=== PATIENT | male | born 1985 | race Hispanic/Latino ===

== ENCOUNTER 2020-03-16 12:32 | Inpatient (IN) | payer SELFPAY, OTHER ==
[2020-03-16] MEDS: D5 0.45 NS 1,000 ML IV SCH ×4 (06:40→20:00)
[2020-03-16 13:19] LABS: Absolute Lymphocytes (CBC) 0.5 K/uL (0.7-4.9); Basophils % 0.6 % (0-1.3); Lymphocytes % 4.4 % (15.3-44.8); MPV 9.9 fL (7.6-11.3); RBC Red Blood Cell Count 5.89 M/uL (4.33-5.43)
[2020-03-16 13:23] LABS: Protime INR 0.99
[2020-03-16] MEDS ORDERED: NA CHLORIDE 0.9% 2,000 ML ONE (13:31)
[2020-03-16] MEDS ORDERED: MORPHINE 4 MG/ML SYR ONE (13:31)
[2020-03-16] MEDS ORDERED: ONDANSETRON 4 MG/2 ML VIAL ONE ×2 (13:31→14:41)
[2020-03-16 14:04] LABS: ALT/SGPT 72 U/L (12-78); AST/SGOT 43 U/L (15-37); Albumin 3.6 g/dL (3.4-5.0); Alkaline Phosphatase 150 U/L (45-117); Amylase 111 U/L (25-115); BUN Blood Urea Nitrogen 10 mg/dL (7-18); Bilirubin Direct 0.2 mg/dL (0-0.2); Bilirubin Total 0.5 mg/dL (0.2-1.0); CKMB Creatine Kinase MB < 1.0 ng/mL (0.3-3.6); Creatine Phosphokinase 47 U/L (39-308); Lipase 61 U/L (73-393); Potassium 4.7 mmol/L (3.5-5.1); Protein, Total 9.2 g/dL (6.4-8.2); Sodium Level 133 mmol/L (136-145); Troponin (Emerg Dept Use Only) < 0.02 ng/mL (0.0-0.045)
[2020-03-16 14:05] LABS: Bicarbonate 5 mmol/L (21-32); Glucose Level 626 mg/dL (74-106)
[2020-03-16 14:19] LABS: Blood Morphology Comment NOT SEEN (NOT SEEN); Platelet Estimate ADEQ; White Blood Cell Scan OK (OK)
--- NOTE | 2020-03-16 14:20 | RAD REPORT ---
EXAM DESCRIPTION: CT - Abdomen Pelvis W Contrast - 03/16/2020 1:51 pm CLINICAL HISTORY: Abd pain;Nausea / vomiting, epigastric pain, prior appendectomy COMPARISON: No comparisons TECHNIQUE: Biphasic, helical CT imaging of the abdomen and pelvis was performed following 100 ml non -ionic IV contrast. No oral contrast administered. All CT scans are performed using dose optimization technique as appropriate and may include automated exposure control or mA/KV adjustment according to patient size. FINDINGS: No suspicious findings in the lung bases. Diffuse fatty infiltration is present in the liver. No focal liver lesions seen. Areas of spared pare nchyma seen near the portal vasculature and gallbladder fossa. No focal splenic or pancreatic abnorma lity. Gallbladder and biliary tree are also without suspicious finding. Gallstones can be occult on C T imaging. Symmetric renal function is seen with no hydronephrosis or suspicious renal mass. No pyelonephritis o r acute parenchymal process. No bladder abnormalities. No adrenal abnormalities. Fluid-filled stomach is present. No gastric wall thickening. Steward of the antrum are mildly prominent and enhance slightly more than the rest of the gastric steward. No duodenal abnormality seen. No dilated large or small bowel. Appendectomy clips are present. No free air, free fluid or inflammatory stranding. No hernia, mass or bulky lymphadenopathy. No suspicious bony findings. IMPRESSION: No bowel obstruction, free air or surgically emergent finding. Mild prominence of the gastric antrum steward. No obstruction is seen. This could be a mild gastric ant ritis. Diffuse fatty infiltration of the liver.
--- NOTE | 2020-03-16 14:25 | RAD REPORT ---
EXAM DESCRIPTION: RAD - Chest Single View - 03/16/2020 1:58 pm CLINICAL HISTORY: COUGH COMPARISON: Two view chest April 2015 TECHNIQUE: AP portable chest image was obtained 03/16/2020 1:58 pm . FINDINGS: Lung volumes are low. Lung lerma are clear. Right hemidiaphragm elevation noted. No failu re or volume overload. Heart and vasculature are normal. No measurable pleural effusion and no pneumo thorax. No acute bony abnormality seen. No acute aortic findings suspected. IMPRESSION: No acute cardiopulmonary process. No suspicious change from comparison.
[2020-03-16] MEDS ORDERED: GLUCAGON 1 MG/VIAL IM PRN (14:28)
[2020-03-16] MEDS ORDERED: D50W 25 GM/50 ML SYRINGE/VIAL IV PRN (14:28)
[2020-03-16] MEDS ORDERED: D5.45NS W/KCL 20MEQ 0 ML IV ONE (14:41)
--- NOTE | 2020-03-16 14:50 | EDPHYS ---
Physician Documentation [facility] Name: Rashad Pompa Age: 34 yrs Sex: Male : 1985 Arrival Date: 03/16/2020 Time: 12:37 Bed 18 Private MD: ED Physician Aidan Schofield HPI: 03/16 12:59 This 34 yrs old Male presents to ER via Ambulatory with complaints of pm1 Abdominal pain and vomiting. 12:59 The patient presents with abdominal pain in the left upper quadrant. Onset: The pm1 symptoms/episode began/occurred 2.5 week(s) ago. The symptoms do not radiate. Associated signs and symptoms: Pertinent positives: nausea and vomiting, shortness of breath, Pertinent negatives: chest pain, fever, Denies any coughing.. The symptoms are described as achy, constant. Modifying factors: The symptoms are alleviated by nothing, the symptoms are aggravated by drinking, food. Severity of pain: in the emergency department the pain is actually worse. The patient has not experienced similar symptoms in the past. The patient has not recently seen a physician, and does not have an established primary care provider. Patient has been having polydipsia, polyphagia, polyuria for the past 1 week. Patient is having difficulty keeping food and liquids down due to nausea and vomiting. Historical: - Allergies: 12:49 No Known Allergies; ll1 - PSHx: 12:49 "drain a lung" when pt had pneumonia; Appendectomy; ll1 - Immunization history:: Flu vaccine is not up to date. - Social history:: Smoking status: Patient denies any tobacco usage or history of. ROS: 12:59 Constitutional: Negative for fever, chills, and weight loss, Eyes: Negative for injury, pm1 pain, redness, and discharge, ENT: Negative for injury, pain, and discharge, Neck: Negative for injury, pain, and swelling. 12:59 Cardiovascular: Negative for chest pain, palpitations, and edema. 12:59 Back: Negative for injury and pain, : Negative for injury, bleeding, discharge, and swelling, MS/Extremity: Negative for injury and deformity, Skin: Negative for injury, rash, and discoloration, Neuro: Negative for headache, weakness, numbness, tingling, and seizure. 12:59 Respiratory: Positive for shortness of breath, Negative for cough, wheezing. 12:59 Abdomen/GI: Positive for abdominal pain, nausea and vomiting, of the left upper quadrant, Negative for diarrhea, constipation. Exam: 12:59 Constitutional: This is a well developed, well nourished patient who is awake, alert, pm1 and in no acute distress. Head/Face: Normocephalic, atraumatic. 12:59 Back: No spinal tenderness. No costovertebral tenderness. Full range of motion. Skin: Warm, dry with normal turgor. Normal color with no rashes, no lesions, and no evidence of cellulitis. MS/ Extremity: Pulses equal, no cyanosis. Neurovascular intact. Full, normal range of motion. 12:59 Cardiovascular: Rate: tachycardic, Rhythm: regular, Pulses: no pulse deficits are appreciated, Edema: is not appreciated. 12:59 Respiratory: the patient does not display signs of respiratory distress, Respirations: normal, Breath sounds: are clear throughout. 12:59 Abdomen/GI: Inspection: obese Palpation: soft, in all quadrants, mild abdominal tenderness, in the left upper quadrant. 12:59 Neuro: Orientation: is normal, Mentation: is normal, Motor: is normal, moves all fours. Vital Signs: 12:47 BP 133 / 91; Pulse 143; Resp 24; Temp 98.4(O); Pulse Ox 98% ; Weight 140.61 kg; Height ll1 5 ft. 10 in. (177.80 cm); Pain 10/10; 13:34 Pulse 132; Resp 24; Pulse Ox 97% on R/A; ph 14:30 BP 132 / 90; Pulse 131; Resp 24; Pulse Ox 98% on R/A; ph 15:24 BP 126 / 82; Pulse 126; Resp 26; Pulse Ox 97% on R/A; ph 16:30 BP 147 / 86; Pulse 130; Resp 24; Pulse Ox 100% on R/A; ph 17:30 BP 146 / 84; Pulse 121; Resp 24; Pulse Ox 99% on R/A; ph 12:47 Body Mass Index 44.48 (140.61 kg, 177.80 cm) ll1 MDM: 12:48 Patient medically screened. pm1 14:46 Data reviewed: vital signs. Data interpreted: Pulse oximetry: on room air is 97 %. pm1 Interpretation: normal. 14:46 Counseling: I had a detailed discussion with the patient and/or guardian regarding: the pm1 historical points, exam findings, and any diagnostic results supporting the discharge/admit diagnosis, lab results, radiology results, the need for further work-up and treatment in the hospital. 14:46 Physician consultation: Riccardo Calhoun MD was called at 14:46, was contacted at 14:46, pm1 regarding admission, patient's condition, and will see patient. 03/16 12:54 Order name: Amylase, Serum; Complete Time: 14:08 pm1 03/16 12:54 Order name: Basic Metabolic Panel; Complete Time: 14:08 pm1 03/16 12:54 Order name: Blood Culture Adult (2) pm1 03/16 12:54 Order name: CBC with Diff; Complete Time: 14:29 pm1 03/16 12:54 Order name: Ckmb; Complete Time: 14:08 pm1 03/16 12:54 Order name: CPK; Complete Time: 14:08 pm1 03/16 12:54 Order name: Lactate; Complete Time: 14:08 pm1 03/16 12:54 Order name: LFT's; Complete Time: 14:08 pm1 03/16 12:54 Order name: Lipase; Complete Time: 14:08 pm1 03/16 12:54 Order name: Procalcitonin; Complete Time: 14:08 pm1 03/16 12:54 Order name: Protime (+inr); Complete Time: 13:26 pm1 03/16 12:55 Order name: Ptt, Activated; Complete Time: 13:26 pm1 03/16 12:55 Order name: Troponin (emerg Dept Use Only); Complete Time: 14:08 pm1 03/16 12:55 Order name: Urine Microscopic Only pm1 03/16 12:57 Order name: Flu; Complete Time: 15:31 pm1 03/16 12:57 Order name: Strep; Complete Time: 15:14 pm1 03/16 13:18 Order name: Glucose, Ancillary Testing; Complete Time: 13:21 EDMS 03/16 13:25 Order name: Acetone, Serum; Complete Time: 13:49 pm1 03/16 14:18 Order name: CBC Smear Scan; Complete Time: 14:29 EDMS 03/16 15:13 Order name: Throat Culture EDMS 03/16 15:28 Order name: ABG Arterial Blood Gas EDMS 03/16 15:28 Order name: ABG Arterial Blood Gas EDMS 03/16 15:28 Order name: Acetone Level EDMS 03/16 15:28 Order name: Acetone Level; Complete Time: 16:57 EDMS 03/16 15:28 Order name: Acetone Level EDMS 03/16 15:28 Order name: Basic Metabolic Panel EDMS 03/16 15:28 Order name: Basic Metabolic Panel; Complete Time: 16:57 EDMS 03/16 15:28 Order name: Basic Metabolic Panel EDMS 03/16 15:28 Order name: Calcium Level EDMS 03/16 15:28 Order name: Calcium Level EDMS 03/16 15:28 Order name: Calcium Level EDMS 03/16 15:28 Order name: Calcium Level EDMS 03/16 15:28 Order name: CBC with Automated Diff EDMS 03/16 15:28 Order name: CBC with Automated Diff EDMS 03/16 15:28 Order name: CBC with Automated Diff EDMS 03/16 15:28 Order name: CBC with Automated Diff EDMS 03/16 15:28 Order name: Lipid Profile EDMS 03/16 15:28 Order name: Lipid Profile EDMS 03/16 15:28 Order name: Magnesium EDMS 03/16 15:28 Order name: Magnesium EDMS 03/16 15:28 Order name: Magnesium EDMS 03/16 15:28 Order name: Magnesium EDMS 03/16 15:28 Order name: Phosphorus EDMS 03/16 15:28 Order name: Phosphorus EDMS 03/16 15:28 Order name: Phosphorus EDMS 03/16 15:28 Order name: Phosphorus EDMS 03/16 16:03 Order name: SARS-COV-2 RT PCR; Complete Time: 16:06 EDMS 03/16 16:23 Order name: Glucose ph 03/16 16:33 Order name: Glucose, Ancillary Testing; Complete Time: 16:39 EDMS 03/16 16:53 Order name: Glucose Level; Complete Time: 16:57 EDMS 03/16 16:54 Order name: Lactate Sepsis 2 HR Follow-up; Complete Time: 16:57 EDMS 03/16 17:31 Order name: ABG Arterial Blood Gas; Complete Time: 17:32 EDMS 03/16 17:45 Order name: Glucose ph 03/16 17:56 Order name: Glucose, Ancillary Testing EDID 03/16 18:50 Order name: Glucose, Ancillary Testing EDID 03/16 19:09 Order name: Glucose Level EDID 03/16 19:45 Order name: Glucose, Ancillary Testing EDMS 03/16 20:34 Order name: Glucose, Ancillary Testing EDMS 03/16 21:48 Order name: Glucose, Ancillary Testing EDID 03/16 22:52 Order name: Glucose, Ancillary Testing EDMS 03/16 23:51 Order name: Glucose, Ancillary Testing EDID 03/16 12:55 Order name: Chest Single View XRAY; Complete Time: 14:29 pm03/16 12:55 Order name: Accucheck; Complete Time: 13:31 pm1 03/16 12:55 Order name: Cardiac monitoring; Complete Time: 13:31 pm03/16 12:55 Order name: EKG - Nurse/Tech; Complete Time: 15:23 pm1 03/16 12:55 Order name: IV Saline Lock - Large Bore; Complete Time: 13:14 pm03/16 12:55 Order name: Labs collected and sent; Complete Time: 13:14 pm03/16 12:55 Order name: O2 Per Protocol; Complete Time: 13:14 pm03/16 12:55 Order name: O2 Sat Monitoring; Complete Time: 13:14 pm03/16 12:55 Order name: Urine Dipstick-Ancillary (obtain specimen); Complete Time: 23:18 pm1 03/16 12:55 Order name: CT Abd/Pelvis - IV Contrast Only; Complete Time: 14:29 pm03/16 12:57 Order name: Droplet/Contact Precautions; Complete Time: 13:13 pm03/16 14:17 Order name: NPO; Complete Time: 14:22 pm03/16 15:28 Order name: CONS Pharmacy Consult EDID 03/16 15:28 Order name: NPO EDID 03/17 00:25 Order name: Acetone Level EDID 03/17 00:36 Order name: Basic Metabolic Panel EDID 03/17 00:52 Order name: Glucose, Ancillary Testing EDID 03/17 01:53 Order name: Glucose, Ancillary Testing EDID 03/17 02:49 Order name: Glucose, Ancillary Testing [facility] 03/17 03:48 Order name: Glucose, Ancillary Testing EDID 03/17 04:49 Order name: Acetone Level EDMS 03/17 04:49 Order name: Glucose, Ancillary Testing EDMS 03/17 04:58 Order name: NT PRO-BNP EDMS 03/17 05:02 Order name: Basic Metabolic Panel EDMS 03/17 05:02 Order name: Hemoglobin A1c EDMS 03/17 05:28 Order name: Manual Differential EDMS 03/17 05:49 Order name: Glucose, Ancillary Testing EDMS 03/17 06:43 Order name: Glucose, Ancillary Testing EDMS 03/17 07:36 Order name: Glucose, Ancillary Testing EDMS Administered Medications: 13:26 Drug: Zofran (Ondansetron) 4 mg Route: IVP; Site: right antecubital; ph 19:29 Follow up: Response: No adverse reaction ph 13:28 Drug: morphine 4 mg Route: IVP; Site: right antecubital; ph 14:30 Follow up: Response: No adverse reaction; Pain is decreased ph 13:30 Drug: NS 0.9% (30 ml/kg) 30 ml/kg Route: IV; Rate: bolus; Site: right antecubital; ph 16:00 Follow up: Response: No adverse reaction; IV Status: Completed infusion; IV Intake: ph 2000ml 14:59 Drug: Zofran (Ondansetron) 4 mg Route: IVP; Site: right antecubital; ph 16:00 Follow up: Response: No adverse reaction; Nausea unchanged ph 15:15 Drug: Insulin Drip - (Insulin Regular Human 100 units, NS 0.9% 100 ml) {Co-Signature: ph zb (Cristina Villatoro RN).} Route: IV; Rate: calculated rate; Site: right hand; 19:29 Follow up: Response: No adverse reaction; Blood sugar is lowered; IV Status: Infusion ph continued upon admission 16:21 Drug: D5W with KCL 20 mEq/L 1000 ml Route: IV; Rate: 200 ml/hr; Site: right hand; ph 19:28 Follow up: Response: No adverse reaction; IV Status: Infusion continued upon admission ph 16:40 Drug: Phenergan 12.5 mg Route: IVP; Site: right antecubital; ph 17:00 Follow up: Response: No adverse reaction; Nausea is decreased; Vomiting decreased ph 17:05 Drug: Insulin Regular Human 10 units {Co-Signature: zb (Cristina Villatoro RN).} Route: ph IVP; Site: right antecubital; 18:00 Follow up: Response: No adverse reaction; Blood sugar is lowered ph 17:07 Drug: Sodium Bicarbonate 1 amp Route: IVP; Site: right antecubital; ph 19:33 Follow up: Response: No adverse reaction ph Disposition: 03/16/20 14:49 Hospitalization ordered by Riccardo Calhoun for Inpatient Admission. Preliminary diagnosis is Diabetes mellitus due to underlying condition with ketoacidosis. - Bed requested for [facility] ER HOLD. - Status is Inpatient Admission. bp - Condition is Fair. - Problem is new. - Symptoms have improved. Addendum: 03/20/2020 19:30 Co-signature as Attending Physician, Aidan Schofield MD. r n Signatures: Dispatcher [employer] EDMS Aidan Schofield MD MD rn Hall, Patricia, RN RN ph Harinder Brown, MASH FILTER OPERATOR MASH FILTER OPERATOR pm1 Russell Wheeler RN RN Catalina Iglesias Lynsay, RN RN [facility] Cristina soria Corrections: (The following items were deleted from the chart) 03/16 15:03 12:58 CORONAVIRUS+MR.LAB.BRZ ordered. EDID EDMS 17:42 14:49 Hospitalization Ordered by Riccardo Calhoun MD for Inpatient Admission. Preliminary eb diagnosis is Diabetes mellitus due to underlying condition with ketoacidosis. Bed requested for Intensive Care Unit. Status is Inpatient Admission. Condition is Fair. Problem is new. Symptoms have improved. pm1 03/17 07:54 03/16 17:42 03/16/2020 14:49 Hospitalization Ordered by Riccardo Calhoun MD for Inpatient bp Admission. Preliminary diagnosis is Diabetes mellitus due to underlying condition with ketoacidosis. Bed requested for [facility] ER HOLD. Status is Inpatient Admission. Condition is Fair. Problem is new. Symptoms have improved. eb
--- NOTE | 2020-03-16 14:50 | ER ---
Nurse's Notes [facility] Name: Rashad Pompa Age: 34 yrs Sex: Male : 1985 Arrival Date: 03/16/2020 Time: 12:37 Bed 18 Private MD: Diagnosis: Diabetes mellitus due to underlying condition with ketoacidosis Presentation: 03/16 12:47 Chief complaint: Patient states: N/V with abdominal pain for 2 weeks. SOB and cough for ll1 3-4 days. Coronavirus screen: Client denies travel out of the [place] in the last 14 days. congestion, cough unrelated to allergies, difficulty breathing, fatigue, nausea, vomiting. Client presents with at least one sign or symptom that may indicate coronavirus-19. Standard/surgical mask placed on the client. Ebola Screen: Patient denies travel to an Ebola-affected area in the 21 days before illness onset. Initial Sepsis Screen: Does the patient meet any 2 criteria? RR > 20 per min. HR > 90 bpm. Yes Does the patient have a suspected source of infection? Yes: Productive cough/pneumonia Acute abdominal pain. Risk Assessment: Do you want to hurt yourself or someone else? Patient reports no desire to harm self or others. Onset of symptoms was March 02, 2020. 12:47 Method Of Arrival: Ambulatory ll1 12:47 Acuity: LEONA 2 ll1 Historical: - Allergies: 12:49 No Known Allergies; ll1 - PSHx: 12:49 "drain a lung" when pt had pneumonia; Appendectomy; ll1 - Immunization history:: Flu vaccine is not up to date. - Social history:: Smoking status: Patient denies any tobacco usage or history of. Screenin:13 Abuse screen: Denies threats or abuse. Denies injuries from another. Nutritional ph screening: No deficits noted. Tuberculosis screening: No symptoms or risk factors identified. Fall Risk None identified. Assessment: 13:34 General: Appears in no apparent distress. uncomfortable, obese, well groomed, Behavior ph is calm, cooperative, appropriate for age, Reports feeling ill for approx 1 week. Denies fever. Pain: Complains of pain in left upper quadrant Pain does not radiate. Neuro: Level of Consciousness is awake, obeys commands, lethargic, Oriented to person, place, time, situation. Cardiovascular: Reports fatigue, nausea, vomiting, Denies chest pain, Capillary refill < 3 seconds in bilateral fingers Patient's skin is warm and dry. Respiratory: Airway is patent Respiratory effort is even, labored, Respiratory pattern is tachypnea. GI: Abdomen is obese, Reports upper abdominal pain, nausea, vomiting, Patient currently denies diarrhea. : No signs and/or symptoms were reported regarding the genitourinary system. Derm: Skin is intact, Skin is pink, warm \\T\\ dry. Musculoskeletal: Circulation, motion, and sensation intact. Range of motion: intact in all extremities. 14:30 Reassessment: Patient appears in no apparent distress at this time. No changes from ph previously documented assessment. Patient and/or family updated on plan of care and expected duration. Pain level reassessed. 15:30 Reassessment: Patient appears in no apparent distress at this time. No changes from ph previously documented assessment. Patient and/or family updated on plan of care and expected duration. Pain level reassessed. at bedside. 16:29 Reassessment: Dr Calhoun at bedside to speak w/ pt, insulin drip increased to 8 units/hr. ph 17:43 Reassessment: Patient appears in no apparent distress at this time. Patient and/or ph family updated on plan of care and expected duration. Pain level reassessed. glucose remains >500, verbal order from Dr Calhoun to increase drip to 12 units. 20:30 Reassessment: [id number] hipolito Jasso. rr5 03/17 07:00 Reassessment: RECD REPORT FROM GITA LAGOS. 34YO HM ON ER HOLD FOR ICU ADMIT 2/2 DKA. bp 07:54 Reassessment: REPORT TO EDUARDO LAGOS FOR ER ICU. bp Vital Signs: 03/16 12:47 BP 133 / 91; Pulse 143; Resp 24; Temp 98.4(O); Pulse Ox 98% ; Weight 140.61 kg; Height ll1 5 ft. 10 in. (177.80 cm); Pain 03/01; 13:34 Pulse 132; Resp 24; Pulse Ox 97% on R/A; ph 14:30 BP 132 / 90; Pulse 131; Resp 24; Pulse Ox 98% on R/A; ph 15:24 BP 126 / 82; Pulse 126; Resp 26; Pulse Ox 97% on R/A; ph 16:30 BP 147 / 86; Pulse 130; Resp 24; Pulse Ox 100% on R/A; ph 17:30 BP 146 / 84; Pulse 121; Resp 24; Pulse Ox 99% on R/A; ph 12:47 Body Mass Index 44.48 (140.61 kg, 177.80 cm) ll1 ED Course: 12:37 Patient arrived in ED. mr 12:39 Harinder Brown, SIGIFREDO is PHCP. pm1 12:39 Aidan Schofield MD is Attending Physician. pm1 12:41 Karolina Dalton RN is Primary Nurse. ph 12:48 Triage completed. ll1 12:48 Arm band placed on Patient placed in an exam room, on a stretcher. ll1 12:55 Inserted saline lock: 20 gauge in right antecubital area, using aseptic technique. jp3 Blood collected. 12:55 First set of blood cultures drawn by me. Patient maintains SpO2 saturation greater than jp3 95% on room air. 13:00 Initial lab(s) drawn, by me, sent to lab. jp3 13:10 Second set of blood cultures drawn by lab staff. jp3 13:13 Patient has correct armband on for positive identification. Bed in low position. Call ph light in reach. Side rails up X 1. direct support professional on. Pulse ox on. NIBP on. Door closed. Noise minimized. 13:13 Verbal reassurance given. Notified Nurse Practitioner and/or Physician Director Of In Service Education of POC jp3 Glucose read HI(>500) Notified primary nurse of POC Glucose read HI (>500). 13:52 CT Abd/Pelvis - IV Contrast Only In Process Unspecified. EDMS 13:57 Chest Single View XRAY In Process Unspecified. EDMS 14:02 Notified Nurse Practitioner and/or Physician Director Of In Service Education of a critical lab result(s), hb lactate 2.3, CO2 5, glucose 626. 14:49 Riccardo Calhoun MD is Hospitalizing Provider. pm1 15:00 Inserted saline lock: 22 gauge in right hand, using aseptic technique. ph 16:56 Notified ED physician of a critical lab result(s). GLUCOSE [id number] Notified Nurse hb Practitioner and/or Physician Director Of In Service Education of. 17:45 No provider procedures requiring assistance completed. Patient admitted, IV remains in ph place. 20:59 Notified primary nurse of Glucose and CO2 results, primary nurse to notify hopitalist. sg 21:03 Primary Nurse role handed off by Karolina Dalton RN mw2 21:03 Jerrod Pfeiffer, DEMOND is Primary Nurse. rr5 03/17 07:01 Primary Nurse role handed off by Jerrod Pfeiffer RN bp 07:01 Russell Wheeler, DEMOND is Primary Nurse. bp Administered Medications: 03/16 13:26 Drug: Zofran (Ondansetron) 4 mg Route: IVP; Site: right antecubital; ph 19:29 Follow up: Response: No adverse reaction ph 13:28 Drug: morphine 4 mg Route: IVP; Site: right antecubital; ph 14:30 Follow up: Response: No adverse reaction; Pain is decreased ph 13:30 Drug: NS 0.9% (30 ml/kg) 30 ml/kg Route: IV; Rate: bolus; Site: right antecubital; ph 16:00 Follow up: Response: No adverse reaction; IV Status: Completed infusion; IV Intake: ph 2000ml 14:59 Drug: Zofran (Ondansetron) 4 mg Route: IVP; Site: right antecubital; ph 16:00 Follow up: Response: No adverse reaction; Nausea unchanged ph 15:15 Drug: Insulin Drip - (Insulin Regular Human 100 units, NS 0.9% 100 ml) {Co-Signature: ph zb (Cristina Villatoro RN).} Route: IV; Rate: calculated rate; Site: right hand; 19:29 Follow up: Response: No adverse reaction; Blood sugar is lowered; IV Status: Infusion ph continued upon admission 16:21 Drug: D5W with KCL 20 mEq/L 1000 ml Route: IV; Rate: 200 ml/hr; Site: right hand; ph 19:28 Follow up: Response: No adverse reaction; IV Status: Infusion continued upon admission ph 16:40 Drug: Phenergan 12.5 mg Route: IVP; Site: right antecubital; ph 17:00 Follow up: Response: No adverse reaction; Nausea is decreased; Vomiting decreased ph 17:05 Drug: Insulin Regular Human 10 units {Co-Signature: zb (Cristina Villatoro RN).} Route: ph IVP; Site: right antecubital; 18:00 Follow up: Response: No adverse reaction; Blood sugar is lowered ph 17:07 Drug: Sodium Bicarbonate 1 amp Route: IVP; Site: right antecubital; ph 19:33 Follow up: Response: No adverse reaction ph Intake: 16:00 IV: 2000ml; Total: 2000ml. ph Output: 15:37 Urine: 800ml (Voided); Total: 800ml. ph Outcome: 14:49 Decision to Hospitalize by Provider. pm1 17:45 Admitted to ER Hold. Please see [facility] for further documentation. ph 17:45 critical 17:45 Instructed on the need for admit. 03/17 07:54 Patient left the ED. bp Signatures: Dispatcher [employer] EDMS Wesley Bowden, RN RN sg Natalee Calzada mr Karolina Dalton RN DEMOND ph Harinder Brown, ROUGH RICE GRADER ROUGH RICE GRADER pm1 Carmen Wilson RN Russell Albarado RN RN bp Ned Villaseñor mw2 Matthew Villareal jp3 Jerrod Pfeiffer RN RN rr5 Charla Foreman RN RN ll1 Cristina Villatoro RN zb Corrections: (The following items were deleted from the chart) 03/16 19:29 16:30 Response: No adverse reaction; IV Status: Completed infusion; IV Intake: 2000ml phph 21:21 21:20 Notified primary nurse of Glucose and CO2 results, primary nurse to notify sg hopitalist bety
[2020-03-16] MEDS ORDERED: ONDANSETRON 4 MG/2 ML VIAL IV PRN (15:18)
[2020-03-16] MEDS ORDERED: D5W 1,000 ML with POTASSIUM CL 20 MEQ IV ONE ×2 (16:00)
[2020-03-16] MEDS ORDERED: PROMETHAZINE INJ 25 MG/ML AMP ONE (16:45)
[2020-03-16 16:51] LABS: BUN Blood Urea Nitrogen 12 mg/dL (7-18); Sodium Level 136 mmol/L (136-145)
[2020-03-16 16:53] LABS: Bicarbonate 7 mmol/L (21-32); Glucose Level 549 mg/dL (74-106)
[2020-03-16] MEDS ORDERED: INSULIN -REGULAR HUMAN 50 UNIT/0.5 ML ML ONE (17:12)
[2020-03-16] MEDS ORDERED: SODIUM BICARB 50 MEQ/50ML VIAL ONE (17:12)
[2020-03-16 17:30] LABS: Arterial Blood Carboxyhemoglob 1.8 % (0-1.5); Blood Gas Oxyhemoglobin 94.9 % (94-97); Blood O2 Saturation 97.6 % (92-98.5)
[2020-03-16] MEDS: NACHLORIDE 0.45% 1,000 ML with POTASSIUM CL 20 MEQ IV SCH ×4 (17:45→20:03)
--- NOTE | 2020-03-16 18:17 | P.HP ---
Certification for Inpatient Patient admitted to: Inpatient With expected LOS: >2 Midnights Patient will require the following post-hospital care: None Practitioner: I am a practitioner with admitting privileges, knowledge of patient current condition, hospital course, and medical plan of care. Services: Services provided to patient in accordance with Admission requirements found in Title 42 Section 412.3 of the Code of Federal Regulations Patient History Date of Service: 03/16/20 Reason for admission: DKA History of Present Illness: Patient is a 34-year-old gentleman came to the hospital with shortness of breath. Patient was weak and he had been having polydipsia and polyphagia. He had also been having polyuria. He had lost about 20 lb over the last week. His symptoms have not been improving so he was brought into the emergency room. Initially they thought he was septic. However, further workup revealed that patient was in diabetic ketoacidosis. Patient was started on the insulin drip and also given D5 water. I was consulted to see the patient. We switch patient's fluid over to normal saline and had a VBG performed. Patient was severely acidotic. They gave him an amp of bicarb in the emergency room. We increased his insulin rate. Radial to get his blood sugars slowly to come down from 500 into the 300 range. Patient will be admitted to the hospital for further treatment. Patient will need inpatient hospitalization. He has never been told he is a diabetic. This is a new diagnosis for him and he will need to be on long-acting insulin going forward. Allergies No Known Drug Allergies Allergy (Unverified 02/06/15 13:38) Unknown - Past Medical/Surgical History Has patient received pneumonia vaccine in the past: No Diabetic: No Past Medical History: Patient denies medical history Past Surgical History: Patient denies surgical history - Family History Father Family History: Reviewed- Non-Contributory - Social History Smoking Status: Unknown if ever smoked Alcohol use: No CD- Drugs: No Review of Systems 10-point ROS is otherwise unremarkable Physical Examination - Vital Signs Temperature: 98 F Blood Pressure: 99/60 Pulse: 120 Respirations: 30 Pulse Ox (%): 98 - Physical Exam General: Alert, In no apparent distress, Oriented x3, Moderate distress HEENT: Atraumatic, Normocephalic Neck: Supple, 2+ carotid pulse no bruit, JVD not distended, No Thyromegaly Respiratory: Diminished, Crackles/rales Cardiovascular: Regular rate/rhythm, Normal S1 S2, No murmurs Gastrointestinal: Normal bowel sounds, Soft and benign, Non-distended, No rebound, No guarding, Tenderness Musculoskeletal: No clubbing, No swelling Integumentary: No rashes Neurological: Normal gait, Normal speech, Normal tone, Sensation intact, Cranial nerves 3-12 intact, Abnormal strength - Studies Laboratory Data (last 24 hrs) 03/16/20 13:00: PT 11.7, INR 0.99, APTT 37.8 H 03/16/20 13:00: WBC 11.9 H, Hgb 17.6, Hct 54.0 H, Plt Count 288 03/16/20 13:00: Sodium 133 L, Potassium 4.7, BUN 10, Creatinine 1.44 H, Glucose 626 H*, Total Bilirubin 0.5, AST 43 H, ALT 72, Alkaline Phosphatase 150 H, Amylase 111, Lipase 61 L Microbiology Data (last 24 hrs): 03/16/20 14:50 Nasopharnyx Influenza Type A Antigen Screen - Final 03/16/20 14:50 Nasopharnyx Influenza Type B Antigen Screen - Final 03/16/20 14:50 Throat Group A Streptococcus Rapid Screen - Final Assessment & Plan - Problems (Diagnosis) (1) Diabetic keto-acidosis Current Visit: Yes Status: Acute Qualifiers: Diabetes mellitus type: type 1 Diabetes mellitus complication detail: without coma Qualified Code(s): E10.10 - Type 1 diabetes mellitus with ketoacidosis without coma (2) Morbid obesity due to excess calories Current Visit: Yes Status: Acute (3) Respiratory distress Current Visit: Yes Status: Acute - Plan Plan: 1. Aggressive IV hydration 2. Insulin drip 3. Monitor electrolytes closely 4. Replace electrolytes as needed 5. Changed IV fluids once blood sugars are less than 250 6. Once anion gap is closed we will see if patient can tolerate a diet and if he does then we can give him his long-acting insulin and stop the insulin drip an hour later. Hydration will depend on patient's volume status 7. Patient is new onset diabetic. Will need to do diabetic education and teaching had a use insulin and check his blood sugars. Patient is tachypneic and hopefully as his acidosis corrects his respiratory status should improve as well. We will monitor him closely in the ICU 8. GI and DVT prophylaxis Discharge Plan: Home Plan to discharge in: Greater than 2 days - Advance Directives Does patient have a Living Will: No Does patient have a Durable POA for Healthcare: No - Code Status/Comfort Care Code Status Assessed: Yes Code Status: Full Code Critical Care: Yes Time Spent Managing PTS Care (In Minutes): 70
[2020-03-16 19:05] LABS: Urine Amorphous Sediment TRACE /HPF (NONE SEEN); Urine Bacteria <20 /HPF (NONE SEEN); Urine Culture Reflex Order REFLEXED; Urine Mucus LIGHT /HPF (NONE SEEN); Urine RBC <5 /HPF (NONE SEEN); Urine Yeast PRESENT (NONE SEEN)
[2020-03-16 20:53] LABS: BUN Blood Urea Nitrogen 10 mg/dL (7-18); Potassium 4.2 mmol/L (3.5-5.1); Sodium Level 139 mmol/L (136-145)
[2020-03-16 20:57] LABS: Bicarbonate 7 mmol/L (21-32); Glucose Level 428 mg/dL (74-106)
[2020-03-16 21:53] VITALS: BMI 44.2
[2020-03-16] MEDS ORDERED: NA CHLORIDE 0.9% 1,000 ML ONE (22:50)
[2020-03-16] MEDS: NA CHLORIDE 0.9% 1,000 ML IV SCH (23:00)
[2020-03-17] MEDS: NACHLORIDE 0.45% 1,000 ML with POTASSIUM CL 20 MEQ IV SCH ×12 (00:06→23:11)
[2020-03-17 00:35] LABS: BUN Blood Urea Nitrogen 10 mg/dL (7-18); Glucose Level 332 mg/dL (74-106); Sodium Level 139 mmol/L (136-145)
[2020-03-17 00:36] LABS: Bicarbonate 8 mmol/L (21-32)
[2020-03-17] MEDS ORDERED: ONDANSETRON 4 MG/2 ML VIAL ONE (01:37)
[2020-03-17] MEDS ORDERED: NA CHLORIDE 0.9% 100 ML IV ONE (02:12)
[2020-03-17] MEDS ORDERED: INSULIN -REGULAR HUMAN 50 UNIT/0.5 ML ML ONE (02:12)
[2020-03-17 04:48] LABS: Basophils % 0.5 % (0-1.3); Hematocrit 49.6 % (39.6-49.0); Lymphocytes % 8.4 % (15.3-44.8); MPV 9.4 fL (7.6-11.3); RBC Red Blood Cell Count 5.56 M/uL (4.33-5.43)
[2020-03-17] MEDS: D5 0.45 NS 1,000 ML IV SCH ×3 (04:50→17:22)
[2020-03-17 04:56] LABS: Magnesium 2.1 mg/dL (1.8-2.4); Phosphorus 1.1 mg/dL (2.5-4.9)
[2020-03-17] MEDS ORDERED: D5 0.45 NS 1,000 ML IV ONE ×3 (04:56→22:21)
[2020-03-17 04:57] LABS: BUN Blood Urea Nitrogen 9 mg/dL (7-18); Glucose Level 264 mg/dL (74-106); Potassium 3.9 mmol/L (3.5-5.1); Sodium Level 141 mmol/L (136-145)
[2020-03-17 05:02] LABS: Bicarbonate 12 mmol/L (21-32)
[2020-03-17 05:27] LABS: Blood Morphology Comment NOT SEEN (NOT SEEN); Platelet Estimate ADEQ
[2020-03-17 05:27] LABS: Arterial Blood Carboxyhemoglob 1.9 % (0-1.5); Blood Gas Oxyhemoglobin 95.5 % (94-97); Blood O2 Saturation 98.2 % (92-98.5)
[2020-03-17] MEDS: NA CHLORIDE 0.9% 1,000 ML IV SCH (05:40)
[2020-03-17] MEDS ORDERED: POTASSIUM PHOS IN 0.9 % NACL 15 MMOL/250 ML BAG IV ONE ×3 (06:24→18:00)
[2020-03-17 09:03] LABS: BUN Blood Urea Nitrogen 8 mg/dL (7-18); Glucose Level 317 mg/dL (74-106); Potassium 3.8 mmol/L (3.5-5.1); Sodium Level 139 mmol/L (136-145)
[2020-03-17 09:05] LABS: Bicarbonate 13 mmol/L (21-32)
[2020-03-17] MEDS ORDERED: ENOXAPARIN 40 MG/0.4 ML SQ ONE (09:08)
[2020-03-17] MEDS: ENOXAPARIN 40 MG/0.4 ML SQ SCH (09:48)
[2020-03-17] MEDS ORDERED: SODIUM CHLORIDE 0.9% 10ML INJ IV PRN (12:09)
--- NOTE | 2020-03-17 12:09 | P.PN ---
Subjective Date of Service: 03/17/20 Primary Care Provider: none Chief Complaint: DKA Subjective: Other (Patient reports slight improvement but still feeling tired) Physical Examination - Vital Signs Temperature: 98 F Blood Pressure: 150/100 Pulse: 115 Respirations: 24 Pulse Ox (%): 97 - Physical Exam General: Alert, In no apparent distress, Oriented x3, Cooperative HEENT: Atraumatic, Other (dry mucous membranes) Neck: Supple Respiratory: Clear to auscultation bilaterally, Normal air movement Cardiovascular: Abnormal pulses Gastrointestinal: Normal bowel sounds, No tenderness, No masses, No rebound, No guarding Neurological: Normal speech, Normal strength at 5/5 x4 extr, Normal tone, Normal affect - Studies Laboratory Data (last 24 hrs) 03/16/20 13:00: PT 11.7, INR 0.99, APTT 37.8 H 03/16/20 13:00: WBC 11.9 H, Hgb 17.6, Hct 54.0 H, Plt Count 288 03/16/20 13:00: Sodium 133 L, Potassium 4.7, BUN 10, Creatinine 1.44 H, Glucose 626 H*, Total Bilirubin 0.5, AST 43 H, ALT 72, Alkaline Phosphatase 150 H, Amylase 111, Lipase 61 L Microbiology Data (last 24 hrs): 03/16/20 14:50 Nasopharnyx Influenza Type A Antigen Screen - Final 03/16/20 14:50 Nasopharnyx Influenza Type B Antigen Screen - Final 03/16/20 14:50 Throat Group A Streptococcus Rapid Screen - Final Medications List Reviewed: Yes Assessment & Plan Discharge Plan: Home Plan to discharge in: 72 Hours Physician Review Additional Text: Impression: Diabetic ketoacidosis with new diagnosis of type 2 diabetes uncontrolled with hyperglycemia Hypertension uncontrolled GERD Fatty liver Obesity BMI 44 Plan: Diabetic ketoacidosis with new diagnosis of type 2 diabetes uncontrolled with hyperglycemia: Continue DKA protocol. Continue monitor electrolytes. Continue IV fluids. Patient on insulin drip. Continue maintain blood sugar around 200- 250. Will monitor closely. Once gap has closed and bicarb has improved then will transition to insulin subcu. A1c greater than 13. Patient will require insulin at discharge. Will teach on diabetes once better controlled. COVID 19 infection and pneumonia have been ruled out. Suspect underlying GERD. Will start medication. Continue DVT prophylaxis. Anticipate improvement over the n ext 48-72 hr. Hypertension uncontrolled: Will start metoprolol. Will continue to adjust medication. GERD: Will start medication. Fatty liver: Will address education Obesity BMI 44: Will address lifestyle modification education. Time Spent Managing Pts Care (In Minutes): 55
[2020-03-17 12:51] LABS: BUN Blood Urea Nitrogen 7 mg/dL (7-18); Glucose Level 265 mg/dL (74-106); Potassium 3.6 mmol/L (3.5-5.1); Sodium Level 141 mmol/L (136-145)
[2020-03-17 12:54] LABS: Bicarbonate 13 mmol/L (21-32)
[2020-03-17] MEDS: METOPROLOL TAR 25 MG TAB PO SCH ×2 (13:15→20:57)
[2020-03-17] MEDS: PANTOPRAZOLE 40 MG INJ IVP SCH (13:15)
[2020-03-17] MEDS ORDERED: METOPROLOL TAR 25 MG TAB ONE ×2 (13:22→20:31)
[2020-03-17] MEDS ORDERED: PANTOPRAZOLE 40 MG INJ ONE (13:22)
[2020-03-17] MEDS ORDERED: NS 0.9% VIAL 10 ML ONE (13:23)
[2020-03-17] MEDS ORDERED: POTASSIUM CL SA 10 MEQ TAB PO ONE (15:00)
[2020-03-17] MEDS ORDERED: PNEUMOCOCCAL VACCINE 0.5 ML IMVAC ONE (16:00)
[2020-03-17] MEDS ORDERED: INFLUENZA VACCINE (for 3y+) 0.5 ML DOSE IMVAC ONE (16:00)
[2020-03-17 16:37] LABS: Magnesium 1.9 mg/dL (1.8-2.4); Phosphorus 1.7 mg/dL (2.5-4.9); Potassium 3.5 mmol/L (3.5-5.1)
[2020-03-17] MEDS: INSULIN -REGULAR HUMAN 100 UNIT in NA CHLORIDE 0.9% 100 ML IV SCH (17:23)
[2020-03-17 20:26] LABS: Potassium 3.4 mmol/L (3.5-5.1)
[2020-03-18] MEDS ORDERED: METOPROLOL TAR 25 MG TAB ONE ×2 (00:43→06:53)
[2020-03-18 01:30] LABS: Potassium 3.4 mmol/L (3.5-5.1)
[2020-03-18] MEDS: D5 0.45 NS 1,000 ML IV SCH ×3 (02:40→09:24)
[2020-03-18] MEDS: INSULIN -REGULAR HUMAN 100 UNIT in NA CHLORIDE 0.9% 100 ML IV SCH (03:13)
[2020-03-18 04:43] LABS: Absolute Lymphocytes (CBC) 1.3 K/uL (0.7-4.9); Basophils % 0.8 % (0-1.3); Hematocrit 44.7 % (39.6-49.0); Lymphocytes % 11.7 % (15.3-44.8); MPV 8.9 fL (7.6-11.3); RBC Red Blood Cell Count 5.17 M/uL (4.33-5.43)
[2020-03-18 04:53] LABS: Magnesium 1.8 mg/dL (1.8-2.4); Potassium 3.2 mmol/L (3.5-5.1)
[2020-03-18] MEDS ORDERED: MAGNESIUM SULFATE 1 gm IVPB 1 GM/100 ML BAG IV ONE ×2 (05:02→05:36)
[2020-03-18] MEDS: METOPROLOL TAR 25 MG TAB PO SCH ×2 (05:23→17:18)
[2020-03-18] MEDS: NACHLORIDE 0.45% 1,000 ML with POTASSIUM CL 20 MEQ IV SCH ×8 (05:57→16:51)
[2020-03-18] MEDS ORDERED: METOPROLOL TAR 25 MG TAB PO SCH (06:00)
[2020-03-18] MEDS ORDERED: METOPROLOL TAR 25 MG TAB PO ONE (07:00)
[2020-03-18] MEDS ORDERED: POTASSIUM PHOS IN 0.9 % NACL 15 MMOL/250 ML BAG IV ONE (08:00)
[2020-03-18] MEDS: ENOXAPARIN 40 MG/0.4 ML SQ SCH (08:02)
[2020-03-18] MEDS: PANTOPRAZOLE 40 MG INJ IVP SCH (08:02)
[2020-03-18] MEDS ORDERED: PANTOPRAZOLE 40 MG INJ ONE (08:14)
[2020-03-18] MEDS ORDERED: ENOXAPARIN 40 MG/0.4 ML SQ ONE (08:15)
--- NOTE | 2020-03-18 08:15 | P.PN ---
Subjective Date of Service: 03/18/20 Primary Care Provider: none Chief Complaint: DKA Subjective: Improving, Doing well, Other (Patient desires to eat.) Physical Examination - Vital Signs Temperature: 98.7 F Blood Pressure: 131/80 Pulse: 91 Respirations: 20 Pulse Ox (%): 100 - Physical Exam General: Alert, In no apparent distress, Oriented x3, Cooperative HEENT: Atraumatic Neck: Supple Respiratory: Clear to auscultation bilaterally, Normal air movement Cardiovascular: Normal pulses, Regular rate/rhythm Gastrointestinal: Normal bowel sounds, Soft and benign, Non-distended, No tenderness, No masses, No rebound, No guarding Musculoskeletal: No erythema, No tenderness, No warmth Integumentary: No tenderness/swelling, No erythema, No warmth, No cyanosis Neurological: Normal speech, Normal strength at 5/5 x4 extr, Normal tone, Normal affect - Studies Medications List Reviewed: Yes Assessment & Plan Discharge Plan: Home Plan to discharge in: 24 Hours Physician Review Additional Text: Impression: Diabetic ketoacidosis with new diagnosis of type 2 diabetes uncontrolled with hyperglycemia Hypertension uncontrolled GERD Fatty liver Obesity BMI 44 Plan: Diabetic ketoacidosis with new diagnosis of type 2 diabetes uncontrolled with hyperglycemia: Continue DKA protocol. Gap improved. Repeat lab this morning. Will consider transition off insulin drip if gap closed and bicarb improved. A1c 13.2. Patient will need to be transitioned to subcu insulin at discharge. Continue to educate on diabetes. Patient understands that he also needs to have a PCP in place. Will discuss with social and human services assistant to help arrange this at discharge. Reassess lab this morning. Anticipate discharge in the next 24 hr. Hypertension uncontrolled: Continue to adjust medication for better blood pressure control. Will continue to adjust medication. GERD: Continue medication. Fatty liver: Continue to provide education Obesity BMI 44: Will address lifestyle modification education. Time Spent Managing Pts Care (In Minutes): 55
[2020-03-18 08:38] VITALS: O2SAT 100
[2020-03-18 09:25] LABS: Potassium 2.9 mmol/L (3.5-5.1)
[2020-03-18] MEDS ORDERED: D5 0.45 NS 1,000 ML IV ONE (09:36)
[2020-03-18] MEDS: D5.45NS W/KCL 20MEQ 20 MEQ/1,000 ML BAG IV SCH ×2 (09:39→15:59)
[2020-03-18] MEDS ORDERED: D5.45NS W/KCL 20MEQ 1,000 ML IV ONE (09:52)
--- NOTE | 2020-03-18 10:11 | EKG ---
Test Date: 2020-03-16 Test Time: 15:27:38 Housekeeping Assistant: RIA MEASUREMENT RESULTS: Intervals: Rate: 126 ME: 146 QRSD: 90 QT: 324 QTc: 469 [place]: P: 64 ME: 146 QRS: 56 T: 5 INTERPRETIVE STATEMENTS: Sinus tachycardia Possible Left atrial enlargement Nonspecific T wave abnormality Abnormal ECG Compared to ECG 05/19/2015 11:22:26 T-wave abnormality now present Sinus rhythm no longer present Electronically Signed On 03-18-20 10:06:58 CDT by Roby Garrido
[2020-03-18] MEDS ORDERED: ACETAMINOPHEN 500 MG TAB PO PRN (12:16)
[2020-03-18] MEDS ORDERED: ACETAMINOPHEN 500 MG TAB ONE (13:44)
[2020-03-18 16:25] LABS: BUN Blood Urea Nitrogen 7 mg/dL (7-18); Bicarbonate 17 mmol/L (21-32); Glucose Level 183 mg/dL (74-106); Potassium 3.2 mmol/L (3.5-5.1); Sodium Level 137 mmol/L (136-145)
[2020-03-18] MEDS: NPH (HUMAN) 100 UNITS/ML INSULIN SQ SCH (17:03)
[2020-03-18] MEDS ORDERED: NPH (HUMAN) 100 UNITS/ML INSULIN SQ ONE (17:16)
[2020-03-18] MEDS ORDERED: METOPROLOL TAR 50 MG TAB ONE (17:30)
[2020-03-18] MEDS: INSULIN -REGULAR HUMAN 50 UNIT/0.5 ML ML SQ SCH (19:38)
[2020-03-18] MEDS ORDERED: INSULIN -REGULAR HUMAN 50 UNIT/0.5 ML ML ONE (19:50)
[2020-03-19] MEDS: NACHLORIDE 0.45% 1,000 ML with POTASSIUM CL 20 MEQ IV SCH ×2 (02:30)
[2020-03-19] MEDS: METOPROLOL TAR 25 MG TAB PO SCH (05:18)
[2020-03-19 05:40] LABS: Absolute Lymphocytes (CBC) 2.2 K/uL (0.7-4.9); Basophils % 1.1 % (0-1.3); Hematocrit 40.3 % (39.6-49.0); Lymphocytes % 30.7 % (15.3-44.8); MPV 8.8 fL (7.6-11.3); RBC Red Blood Cell Count 4.64 M/uL (4.33-5.43)
[2020-03-19 06:05] LABS: BUN Blood Urea Nitrogen 6 mg/dL (7-18); Bicarbonate 16 mmol/L (21-32); Glucose Level 247 mg/dL (74-106); Magnesium 1.7 mg/dL (1.8-2.4); Phosphorus 1.6 mg/dL (2.5-4.9); Sodium Level 138 mmol/L (136-145)
[2020-03-19] MEDS ORDERED: POTASSIUM PHOS IN 0.9 % NACL 15 MMOL/250 ML BAG IV ONE (07:50)
[2020-03-19] MEDS ORDERED: POTASSIUM CL SA 10 MEQ TAB PO ONE (07:51)
[2020-03-19] MEDS ORDERED: MAGNESIUM SULFATE 1 gm IVPB 1 GM/100 ML BAG IV ONE (07:53)
[2020-03-19] MEDS: NPH (HUMAN) 100 UNITS/ML INSULIN SQ SCH (08:00)
[2020-03-19] MEDS: INSULIN -REGULAR HUMAN 50 UNIT/0.5 ML ML SQ SCH ×2 (08:24→12:03)
[2020-03-19] MEDS: PANTOPRAZOLE 40 MG INJ IVP SCH (08:29)
[2020-03-19] MEDS: ENOXAPARIN 40 MG/0.4 ML SQ SCH (08:29)
--- NOTE | 2020-03-19 09:39 | P.DS ---
Admission Date: 03/16/20 Discharge Date: 03/19/20 Primary Care Provider: none Disposition: ROUTINE DISCHARGE Discharge Condition: GOOD Reason for Admission: DKA Consultations: none Procedures: CXR: FINDINGS: Lung volumes are low. Lung lerma are clear. Right hemidiaphragm elevation noted. No failure or volume overload. Heart and vasculature are normal. No measurable pleural effusion and no pneumothorax. No acute bony abnormality seen. No acute aortic findings suspected. IMPRESSION: No acute cardiopulmonary process. No suspicious change from comparison. CT Scan: FINDINGS: No suspicious findings in the lung bases. Diffuse fatty infiltration is present in the liver. No focal liver lesions seen. Areas of spared parenchyma seen near the portal vasculature and gallbladder fossa. No focal splenic or pancreatic abnormality. Gallbladder and biliary tree are also without suspicious finding. Gallstones can be occult on CT imaging. Symmetric renal function is seen with no hydronephrosis or suspicious renal mass. No pyelonephritis or acute parenchymal process. No bladder abnormalities. No adrenal abnormalities. Fluid-filled stomach is present. No gastric wall thickening. Steward of the antrum are mildly prominent and enhance slightly more than the rest of the gastric steward. No duodenal abnormality seen. No dilated large or small bowel. Appendectomy clips are present. No free air, free fluid or inflammatory stranding. No hernia, mass or bulky lymphadenopathy. No suspicious bony findings. IMPRESSION: No bowel obstruction, free air or surgically emergent finding. Mild prominence of the gastric antrum steward. No obstruction is seen. This could be a mild gastric antritis. Diffuse fatty infiltration of the liver. COVID: Negative Medical Problem List: Diabetic ketoacidosis with new diagnosis of type 2 diabetes uncontrolled with hyperglycemia Hypertension uncontrolled GERD Fatty liver Hypertriglyceridemia Obesity BMI 44 Brief History of Present Illness: 34-year-old male presented to the emergency room with nausea, vomiting, polyuria and polydipsia. Patient has had some mild shortness of breath. The patient was found to have DKA. Blood sugars were elevated. Electrolyte a bnormalities noted. Patient was admitted to ICU for DKA treatment. This is a new diagnosis of diabetes for the patient. Hospital Course: Patient presented with nausea, vomiting, polyuria and polydipsia. Patient found to have diabetic ketoacidosis with new diagnosis of type 2 diabetes. A1c was 13.2. Patient was admitted to ICU. DKA protocol was initiated. During the course of his stay his DKA resolved. The patient was transitioned to insulin NPH once DKA was resolved. Blood sugars now better controlled. Patient also better hydrated. This is a new diagnosis of diabetes mellitus type 2. Education was addressed in detail including diet, insulin therapy, and treatment. This was done with the patient and . Patient plans to make lifestyle modification changes. At discharge recommend to maintain blood sugar less than 140 fasting and less than 200 after meals. Recommend to monitor blood sugar at least twice daily. At discharge patient will continue with Novolin NPH FlexPen 30 units subcu twice daily. If blood sugar remains above 200 consistently the patient may increase insulin by 2-3 units for better control. This can be done with the help of his PCP. Patient plans to establish care with a local PCP to continue his care. Once establish patient can be started on oral medication including Glucophage. A list of providers in the area will be provided. Prior to discharge education on diabetes provided including 2000 ADA diet. Patient also found to have hypertension. Patient required medication. At discharge blood pressure better controlled. At discharge patient will continue with metoprolol 50 mg 1 pill twice daily and aspirin 81 mg daily. Recommend to maintain blood pressure less than 130/80. Further adjustment can be done by his PCP. Patient likely with underlying GERD. CT scan also revealed some fatty liver. Education on GERD and fatty liver provided. At discharge patient may continue with Protonix 40 mg daily. Patient would benefit with GI evaluation in the future if symptoms persist. Patient had elevation in triglycerides. At discharge will recommend to continue fish oil 1000 mg 1 pill twice daily. Lifestyle modification education and weight loss provided. Recommend to recheck fasting lipid panel in 4-6 weeks to monitors progress. Further adjustment can be done by his PCP. Patient with obesity, BMI 44. Lifestyle modification education and weight loss address in detail. Patient plans to make changes to his diet. Vital Signs/Physical Exam: Temp Pulse Resp BP Pulse Ox 97.3 F 88 18 127/73 100 03/19/20 08:00 03/19/20 08:00 03/19/20 08:00 03/19/20 08:00 03/19/20 08:00 General: Alert, In no apparent distress, Oriented x3, Cooperative HEENT: Atraumatic, Normocephalic Neck: Supple Respiratory: Clear to auscultation bilaterally, Normal air movement Cardiovascular: Normal pulses Gastrointestinal: No guarding Integumentary: No tenderness/swelling, No erythema, No warmth, No cyanosis Neurological: Normal speech, Normal strength at 5/5 x4 extr, Normal tone, Normal affect Laboratory Data at Discharge: WBC 7.0 K/uL (4.3-10.9) D 03/19/20 05:26 Hgb 13.8 g/dL (13.6-17.9) 03/19/20 05:26 Hct 40.3 % (39.6-49.0) 03/19/20 05:26 Plt Count 220 K/uL (152-406) D 03/19/20 05:26 PT 11.7 SECONDS (9.5-12.5) 03/16/20 13:00 INR 0.99 03/16/20 13:00 APTT 37.8 SECONDS (24.3-36.9) H 03/16/20 13:00 Sodium 138 mmol/L (136-145) 03/19/20 05:24 Potassium 3.0 mmol/L (3.5-5.1) L 03/19/20 05:24 BUN 6 mg/dL (7-18) L 03/19/20 05:24 Creatinine 0.90 mg/dL (0.55-1.3) 03/19/20 05:24 Glucose 247 mg/dL (74-106) H 03/19/20 05:24 Phosphorus 1.6 mg/dL (2.5-4.9) L D 03/19/20 05:24 Magnesium 1.7 mg/dL (1.8-2.4) L 03/19/20 05:24 Total Bilirubin 0.5 mg/dL (0.2-1.0) 03/16/20 13:00 AST 43 U/L (15-37) H 03/16/20 13:00 ALT 72 U/L (12-78) 03/16/20 13:00 Alkaline Phosphatase 150 U/L (45-117) H 03/16/20 13:00 Triglycerides 205 mg/dL (<150) H 03/17/20 04:17 Cholesterol 201 mg/dL (<200) H 03/17/20 04:17 HDL Cholesterol 63 mg/dL (40-60) H 03/17/20 04:17 Cholesterol/HDL Ratio 3.19 03/17/20 04:17 Amylase 111 U/L (25-115) 03/16/20 13:00 Lipase 61 U/L (73-393) L 03/16/20 13:00 Home Medications: Aspirin [Aspirin EC 81 MG] 81 mg PO DAILY #90 tablet. 03/19/20 Docosahexanoic AC/Epa [Fish Oil 1,000 MG CAP] 1 cap PO BID #60 cap 03/19/20 Insulin NPH Human Isophane [Novolin N Flexpen] 30 unit SQ BID #1 box 03/19/20 Metoprolol Tartrate 50 mg PO BID #60 tablet 03/19/20 Pantoprazole [Protonix Tab] 40 mg PO DAILY #30 tab 03/19/20 New Medications: Aspirin [Aspirin EC 81 MG] 81 mg PO DAILY #90 tablet. Docosahexanoic AC/Epa [Fish Oil 1,000 MG CAP] 1 cap PO BID #60 cap Metoprolol Tartrate 50 mg PO BID #60 tablet Insulin NPH Human Isophane [Novolin N Flexpen] 30 unit SQ BID #1 box Pantoprazole [Protonix Tab] 40 mg PO DAILY #30 tab Patient Discharge Instructions: 1. Recommend follow up with PCP to establish care and follow up this hospitalization. 2. Patient presented with nausea, vomiting, polyuria and polydipsia. Patient found to have diabetic ketoacidosis with new diagnosis of type 2 diabetes. A1c was 13.2. Patient was admitted to ICU. DKA protocol was initiated. During the course of his stay his DKA resolved. The patient was transitioned to insulin NPH once DKA was resolved. Blood sugars now better controlled. Patient also better hydrated. This is a new diagnosis of diabetes mellitus type 2. Education was addressed in detail including diet, insulin therapy, and treatment. This was done with the patient and . Patient plans to make lifestyle modification changes. At discharge recommend to maintain blood sugar less than 140 fasting and less than 200 after meals. Recommend to monitor blood sugar at least twice daily. At discharge patient will continue with Novolin NPH FlexPen 30 units subcu twice daily. If blood sugar remains above 200 consistently the patient may increase insulin by 2-3 units for better control. This can be done with the help of his PCP. Patient plans to establish care with a local PCP to continue his care. Once establish patient can be started on oral medication including Glucophage. A list of providers in the area will be provided. Prior to discharge education on diabetes provided including 1999 ADA diet. 3. Patient also found to have hypertension. Patient required medication. At discharge blood pressure better controlled. At discharge patient will continue with metoprolol 50 mg 1 pill twice daily and aspirin 81 mg daily. Recommend to maintain blood pressure less than 130/80. Further adjustment can be done by his PCP. 4. Patient likely wit h underlying GERD. CT scan also revealed some fatty liver. Education on GERD and fatty liver provided. At discharge patient may continue with Protonix 40 mg daily. Patient would benefit with GI evaluation in the future if symptoms persist. 5. Patient had elevation in triglycerides. At discharge will recommend to continue fish oil 1000 mg 1 pill twice daily. Lifestyle modification education and weight loss provided. Recommend to recheck fasting lipid panel in 4-6 weeks to monitors progress. Further adjustment can be done by his PCP. 6. Patient with obesity, BMI 44. Lifestyle modification education and weight loss address in detail. Patient plans to make changes to his diet. Diet: ADA (2199 ADA) Activity: Ad praker Followup: NONE,NONE [Primary Care Provider] - Time spent managing pt's care (in minutes): 55
[2020-03-19 12:45] VITALS: BP 124/73; TEMP 97.8
[2020-03-19] MEDS ORDERED: NPH (HUMAN) 100 UNITS/ML INSULIN SQ SCH (17:00)
== END 2020-03-19 12:41 | disposition home or self-care (01) | DRG 638 ==
LOC: ER 12:32 → ERHOLD 15:35 → 2ND 03-18 20:23
PROVIDERS: ADMIT Hospitalist; ATTEND Family Medicine
DX: E11.10 Type 2 diabetes mellitus with ketoacidosis without coma (principal); Z68.41 Body mass index [BMI] 40.0-44.9, adult; E66.01 Morbid (severe) obesity due to excess calories; K21.9 Gastro-esophageal reflux disease without esophagitis; K76.0 Fatty (change of) liver, not elsewhere classified; E78.1 Pure hyperglyceridemia; R06.03 Acute respiratory distress; Z79.82 Long term (current) use of aspirin; Z90.49 Acquired absence of other specified parts of digestive tract; Z79.4 Long term (current) use of insulin; Z79.899 Other long term (current) drug therapy; Z20.828 Contact with and (suspected) exposure to other viral communicable diseases
CPT/HCPCS: 36415; 71045; 74177; 80048; 80061; 80076; 81015; 82010; 82150; 82310; 82550; 82553; 82565; 82805; 82947; 83036; 83605; 83690; 83735; 83880; 84100; 84145; 84484; 85025; 85610; 85730; 87040; 87070; 87081; 87086; 87088; 87804; 93005; 99285; C9113; J1650; J1815; J2405; J2550; J3475; J3480; J7030; J7799; Q9967; U0003

== ENCOUNTER 2024-01-29 12:17 | Emergency (ER) | payer OTHER, SELFPAY ==
--- OUTSIDE RECORDS SUMMARY | 2024-01-29 12:19 | XMS REPORT | Continuity of Care Document ---
Author Name Unknown Address [address] [place] [address] [address]. [address] [place] [id number] [facility] thconnect Address [address] [facility]. [address] [place] [address] Care Team Providers Care Borough Coordinator Name Role Phone NICK Attending Clinician Unavailable NICK Admitting Clinician Unavailable Encounters Start Date/Time End Date/Time Encounter Type Admission Type Attending Clinicians Care Facility Care Department Encounter ID Source 2021-12-02 01:07:00 2021-12-02 01:07:00 Outpatient [facility]INDY [facility] [id number] [facility] Program
[2024-01-29 13:03] LABS: Absolute Basophils 0.1 K/uL (0-0.5); Absolute Eosinophils 0.2 K/uL (0-0.5); Absolute Lymphocytes (CBC) 2.1 K/uL (0.7-4.9); Absolute Monocytes 0.7 K/uL (0.1-1.3); Eosinophils % 2.1 % (0-4.4); Hematocrit 48.1 % (39.6-49.0); Hemoglobin 16.2 g/dL (13.6-17.9); Lymphocytes % 23.3 % (15.3-44.8); MCH 29.3 pg (27.0-35.0); MCHC 33.7 g/dL (32.0-36.0); MCV 86.7 fL (80-100); MPV 7.9 fL (7.6-11.3); Monocytes % 7.3 % (3.3-12.3); Neutrophils % 66.3 % (41.7-73.7); Nucleated Red Blood Cells % 0.1 % (0-0); Platelets 300 thou/uL (152-406); RBC Red Blood Cell Count 5.54 M/uL (4.33-5.43); Red Cell Distribution Width 13.1 % (12.1-15.2)
[2024-01-29 13:24] LABS: Albumin 3.5 g/dL (3.4-5.0); Albumin/Globulin Ratio 0.8 (1.1-1.8); Anion Gap 9.9 mEq/L (5.0-15.0); Bilirubin Total 0.3 mg/dL (0.2-1.0); Globulin 4.6 g/dL (2.3-3.5); Protein, Total 8.1 g/dL (6.4-8.2)
[2024-01-29 13:27] LABS: Potassium 3.9 mEq/L (3.5-5.1)
--- NOTE | 2024-01-29 13:29 | EDPHYS ---
Physician Documentation [facility] Name: Rashad Pompa Age: 38 yrs Sex: Male : 1985 Arrival Date: 01/29/2024 Time: 12:17 Bed 14 Private MD: ED Physician Tristen Roe HPI: 01/28 13:10 This 38 yrs old Male presents to ER via Ambulatory with complaints of High kb Blood Sugar. 13:10 Pt is a 38 year old male who presents for high blood sugar. States he was diagnosed kb with diabetes years ago but doesn't take any medication for it because he chooses not to. States he has been feeling weird for the last few days so he checked his sugar this morning and it was 310. States he doesn't normally check it. Denies n/v/d, fever. Historical: - Allergies: 12:29 No Known Allergies; tm6 - PMHx: 12:29 Diabetes mellitus; Hypertensive disorder; tm6 - PSHx: 12:29 None; tm6 - Immunization history:: Adult Immunizations up to date. - Infectious Disease History:: Denies. - Social history:: Smoking status: Patient denies any tobacco usage or history of. Patient/guardian denies using alcohol, the patient reports quitting approximately 1 years ago. ROS: 13:09 Constitutional: As per HPI kb Exam: 13:09 Constitutional: This is a well developed, well nourished patient who is awake, alert, kb and in no acute distress. Head/Face: Normocephalic, atraumatic. ENT: Moist Mucous membranes Cardiovascular: Regular rate Respiratory: Respirations even and unlabored. No increased work of breathing. Talking in full sentences Abdomen/GI: Soft, non-tender. No distention Skin: Warm, dry with normal turgor. Normal color. MS/ Extremity: Pulses equal, no cyanosis. Neurovascular intact. Full, normal range of motion. Neuro: Awake and alert, GCS 15, oriented to person, place, time, and situation. Moves all extremities. Normal gait. Vital Signs: 12:26 BP 159 / 105; Pulse 87; Resp 20; Temp 98.1(O); Pulse Ox 100% on R/A; Weight 181.44 kg; tm6 Height 5 ft. 10 in. ; Pain 0/10; 13:30 BP 117 / 88; Pulse 89; Resp 16; Pulse Ox 94% ; me1 12:26 Body Mass Index 57.39 (181.44 kg, 177.8 cm) tm6 12:26 Pain Scale: Adult tm6 MDM: 12:24 Patient medically screened. kb 13:28 Differential diagnosis: DKA, hyperglycemia. Data reviewed: vital signs, nurses notes. kb Counseling: I had a detailed discussion with the patient and/or guardian regarding the historical points, exam findings, and any diagnostic results supporting the discharge/admit diagnosis, lab results, the need for outpatient follow up, a family practitioner, to return to the emergency department if symptoms worsen or persist or if there are any questions or concerns that arise at home. 01/28 12:29 Order name: CBC with Diff; Complete Time: 13:09 kb 01/28 12:29 Order name: CMP; Complete Time: 13:28 kb 01/28 12:37 Order name: Glucose, Ancillary Testing; Complete Time: 12:37 EDMS 01/28 12:29 Order name: IV Start; Complete Time: 12:51 kb Administered Medications: No medications were administered Point of Care Testing: Blood Glucose: 12:26 Blood Glucose: 242 mg/dL; tm6 Ranges: Critical Glucose Levels:Adult <50 mg/dl or >400 mg/dl <40 mg/dl or >180 mg/dl Disposition: 17:01 Co-signature as Attending Physician, Tristen Roe MD I reviewed the patient's care rt provided by the Advanced Practice Provider and agree with the diagnosis and treatment plan. Disposition Summary: 01/29/24 13:29 Discharge Ordered Notes: Location: Home kb Condition: Stable kb Diagnosis - Hyperglycemia, unspecified kb Followup: kb - With: Emergency Department - When: As needed - Reason: Worsening of condition Followup: kb - With: Private Physician - When: 2 - 3 days - Reason: Recheck today's complaints, Continuance of care, Re-evaluation by your physician Discharge Instructions: - Discharge Summary Sheet kb - Hyperglycemia, [id number] kb - Type 2 Diabetes Mellitus, Diagnosis, Adult, [id number] kb Forms: - Medication Reconciliation Form kb - Antibiotic Education kb - Prescription Opioid Use kb - Patient Portal Instructions kb - Leadership Thank You Letter kb Signatures: Dispatcher [employer] EDAdelia Leo FNP-C FNP-Ckb Tristen Roe MD MD rt Mariann Ny, RN RN tm6
--- NOTE | 2024-01-29 13:29 | ER ---
Nurse's Notes [facility] Name: Rashad Pompa Age: 38 yrs Sex: Male : 1985 Arrival Date: 01/29/2024 Time: 12:17 Bed 14 Private MD: Diagnosis: Hyperglycemia, unspecified Presentation: 01/28 12:27 Chief complaint: Patient states: I've been feeling a little weird the past few days, so tm6 this morning I checked my blood sugar and it was 310. Ebola Screen: Patient negative for fever greater than or equal to 101.5 degrees Fahrenheit, and additional compatible Ebola Virus Disease symptoms Patient denies exposure to infectious person. Patient denies travel to an Ebola-affected area in the 21 days before illness onset. No symptoms or risks identified at this time. Initial Sepsis Screen: Does the patient meet any 2 criteria? No. Patient's initial sepsis screen is negative. Does the patient have a suspected source of infection? No. Patient's initial sepsis screen is negative. Risk Assessment: Do you want to hurt yourself or someone else? Patient reports no desire to harm self or others. Onset of symptoms was January 27, 2024. 12:27 Method Of Arrival: Ambulatory tm6 12:27 Acuity: LE[place] 3 tm6 12:29 Coronavirus screen: Vaccine status: Patient reports receiving the 2nd dose of the covid tm6 vaccine. Triage Assessment: 12:27 General: Appears in no apparent distress. Behavior is calm, cooperative. General: tm6 patient states he feels "weird". Pain: Denies pain. EENT: No signs and/or symptoms were reported regarding the EENT system. Neuro: Level of Consciousness is awake, alert, obeys commands, Oriented to person, place, time, situation. Cardiovascular: Patient's skin is warm and dry. Respiratory: Airway is patent Respiratory effort is even, unlabored, Respiratory pattern is regular, symmetrical. GI: No signs and/or symptoms were reported involving the gastrointestinal system. Abdomen is obese. : No signs and/or symptoms were reported regarding the genitourinary system. Derm: No signs and/or symptoms reported regarding the dermatologic system. Musculoskeletal: No signs and/or symptoms reported regarding the musculoskeletal system. Historical: - Allergies: 12:29 No Known Allergies; tm6 - PMHx: 12:29 Diabetes mellitus; Hypertensive disorder; tm6 - PSHx: 12:29 None; tm6 - Immunization history:: Adult Immunizations up to date. - Infectious Disease History:: Denies. - Social history:: Smoking status: Patient denies any tobacco usage or history of. Patient/guardian denies using alcohol, the patient reports quitting approximately 1 years ago. Screenin:[facility] ED Fall Risk Assessment (Adult) History of falling in the last 3 months, me1 including since admission No falls in past 3 months (0 pts) Confusion or Disorientation No (0 pts) Intoxicated or Sedated No (0 pts) Impaired Gait No (0 pts) Mobility Assist Device Used No (0 pt) Altered Elimination No (0 pt) Score/Fall Risk Level 0 - 2 = Low Risk Maintained a safe environment, Provided non-skid footwear, Hourly rounding (assess needs \\T\\ fall precautionary measures) done. Abuse screen: Denies threats or abuse. Nutritional screening: No deficits noted. Tuberculosis screening: No symptoms or risk factors identified. Assessment: 12:35 General: Appears in no apparent distress. well groomed, well developed, well nourished, me1 Behavior is calm, cooperative, appropriate for age, Reports feeling ill for 1-2 days, I've been feeling a little weird the past few days, so this morning I checked my blood sugar and it was 310. Pain: Denies pain. Neuro: Level of Consciousness is awake, alert, obeys commands, Oriented to person, place, time, situation, Appropriate for age. Cardiovascular: Patient's skin is warm and dry. Respiratory: Airway is patent Respiratory effort is even, unlabored, Respiratory pattern is regular, symmetrical. GI: No signs and/or symptoms were reported involving the gastrointestinal system. : No signs and/or symptoms were reported regarding the genitourinary system. EENT: No signs and/or symptoms were reported regarding the EENT system. Derm: Skin is intact, is healthy with good turgor, Skin is pink, warm \\T\\ dry. Musculoskeletal: No signs and/or symptoms reported regarding the musculoskeletal system. Vital Signs: 12:26 BP 159 / 105; Pulse 87; Resp 20; Temp 98.1(O); Pulse Ox 100% on R/A; Weight 181.44 kg; tm6 Height 5 ft. 10 in. ; Pain 0/10; 13:30 BP 117 / 88; Pulse 89; Resp 16; Pulse Ox 94% ; me1 12:26 Body Mass Index 57.39 (181.44 kg, 177.8 cm) tm6 12:26 Pain Scale: Adult tm6 ED Course: 12:21 Patient arrived in ED. ra3 12:24 [facility]C [facility] kb 12:24 Tristen Roe MD is Attending Physician. kb 12:27 Arm band placed on right wrist. tm6 12:28 Triage completed. tm6 12:34 Kae Acosta, RN is Primary Nurse. me1 12:35 Patient has correct armband on for positive identification. Bed in low position. Call me1 light in reach. Side rails up X2. Provided Education on: POC. Verbalized understanding. . Client placed on continuous cardiac and pulse oximetry monitoring. NIBP monitoring applied. Pulse ox on. NIBP on. 12:35 No provider procedures requiring assistance completed. me1 12:51 CBC with Diff Sent. me1 12:51 CMP Sent. me1 12:51 Initial lab(s) drawn, by oh, sent to lab. Inserted saline lock: 22 gauge in right me1 antecubital area, using aseptic technique. 13:56 IV discontinued, intact, bleeding controlled, No redness/swelling at site. Pressure me1 dressing applied. Administered Medications: No medications were administered Medication: 12:35 VIS not applicable for this client. me1 Point of Care Testing: Blood Glucose: 12:26 Blood Glucose: 242 mg/dL; tm6 Ranges: Outcome: 13:29 Discharge ordered by . robinson 13:56 Discharged to home ambulatory, me1 13:56 Condition: stable 13:56 Discharge instructions given to patient, Instructed on discharge instructions, follow up and referral plans. Demonstrated understanding of instructions, follow-up care, 13:56 Patient left the ED. me1 Signatures: Adelia Weaver FNP-C FNP-Ckb Eddleman, Michelle, RN RN oh1 Mariann Ny RN RN tm6 Renee Graff ra3 Corrections: (The following items were deleted from the chart) 12:35 12:27 Chief complaint: Patient states: I've been feeling a little weird the past few oh1 days, so this morning I checked my blood sugar and it was 310 tm6
[2024-01-29 14:07] VITALS: TEMP 98.1
[2024-01-29 14:09] VITALS: BP 117/88; O2SAT 94
== END 2024-01-29 13:56 | disposition home or self-care (01) ==
LOC: ER 12:17
DX: E11.65 Type 2 diabetes mellitus with hyperglycemia (principal); I10 Essential (primary) hypertension
CPT/HCPCS: 36415; 80053; 82947; 85025; 99284